=== PATIENT | female | born 1980 | race Two or more races ===

== ENCOUNTER 2020-03-01 19:45 | Emergency (ER) | payer BC ==
[~2020-03-01] VITALS: Ht 170.2 cm; Wt 95.3 kg
--- NOTE | 2020-03-01 20:05 | NUR ---
ED Nurse Note: pt presents to ED c/o ROLLINS and abd px x 4 days. pt also reports 5 episodes of vomiting today, pt states vomitus appeared to be what she ate a couple days ago, last meal was broccoli and chicken at lunch that she cooked for herself. pt states that she had one episode of loose stool today which is abnormal for her. pt denies any alcohol or drug use. her LMP was on 02/20, she reports she had a fever of 101.7 yesterday but is noted to be afebrile on triage
[2020-03-01 20:15] VITALS: BP 129/83
[2020-03-01] MEDS ORDERED: Omnipaque-300 100ml vial INJ PRN (20:15)
[2020-03-01] MEDS ORDERED: Dicyclomine 10mg Cap ORAL ONE (20:15)
[2020-03-01 20:32] LABS: BASOPHILS % (AUTO) 1.5 % (0.0-2.0); EOSINOPHILS % (AUTO) 0.6 % (0.0-3.0); HEMATOCRIT 41.2 % (37.0-47.0); HEMOGLOBIN 13.7 G/DL (12.0-16.0); LYMPHOCYTES % (AUTO) 26.2 % (20.0-45.0); MEAN CORPUSCULAR VOLUME 91 FL (80-99); MONOCYTES % (AUTO) 9.2 % (1.0-10.0); NEUTROPHILS % (AUTO) 62.6 % (45.0-75.0); PLATELET COUNT 259 K/UL (150-450); RED BLOOD COUNT 4.53 M/UL (4.20-5.40); RED CELL DISTRIBUTION WIDTH 11.6 % (11.6-14.8); WHITE BLOOD COUNT 7.4 K/UL (4.8-10.8)
[2020-03-01 20:37] LABS: BILIRUBIN, URINE NEGATIVE (NEGATIVE); COLOR,URINE PALE YELLOW; GLUCOSE, URINE (UA) NEGATIVE (NEGATIVE); KETONES,URINE 3+ (NEGATIVE); LEUKOCYTE ESTERASE ,URINE NEGATIVE (NEGATIVE); NITRITE,URINE NEGATIVE (NEGATIVE); PH,URINE 6 (4.5-8.0); PROTEIN,URINE NEGATIVE (NEGATIVE); UROBILINOGEN,URINE NORMAL MG/DL (0.0-1.0)
[2020-03-01 20:38] LABS: ANION GAP 8 mmol/L (5-15); BLOOD UREA NITROGEN 16 mg/dL (7-18); CALCIUM 9.2 MG/DL (8.5-10.1); CARBON DIOXIDE 27 MMOL/L (21-32); CHLORIDE 99 MMOL/L (98-107); CREATININE 0.9 MG/DL (0.55-1.30); POTASSIUM 3.8 MMOL/L (3.5-5.1); SODIUM 134 MMOL/L (136-145)
[2020-03-01 20:39] LABS: APPEARANCE,URINE CLEAR
[2020-03-01 20:42] LABS: ALANINE AMINOTRANSFERASE 17 U/L (12-78); ALBUMIN 4.2 G/DL (3.4-5.0); ALBUMIN/GLOBULIN RATIO 1.2 (1.0-2.7); ALKALINE PHOSPHATASE 65 U/L (46-116); ASPARTATE AMINO TRANSFERASE 18 U/L (15-37); BILIRUBIN,TOTAL 0.3 MG/DL (0.2-1.0)
--- NOTE | 2020-03-01 20:55 | NUR ---
ED Nurse Note: pt transported to CT via wheelchair, consent for IV contrast signed by pt
--- NOTE | 2020-03-01 20:59 | Emergency Room Report ---
History of Present Illness General Chief Complaint: Vomiting Source: Patient (Kaela Valenzuela) Present Illness HPI 39-year-old female with no significant past medical history here complaining of 2 days of nausea and epigastric pain with few hours of 5 bouts of nonbloody emesis. Also complains of days of going between constipation and loose stools. Has not taken any laxatives or stool softeners. Denies any blood in stool. Denies any chest pain, shortness of breath, headache and dizziness. Reports that yesterday she had a fever of 100 F. Has not taken medication for symptom relief. Appears to be afebrile upon arrival. Denies any urinary frequency and urgency, denies . Denies tobacco smoke, alcohol intake, drug use. Reports that she contacted her primary doctor in [place] and was told to be checked out for possible hiatal hernia. Denies ever being notified by primary doctor that she has history of hiatal hernia and has never had any CT scan of the abdomen done. Denies coming in contact with anything is positive for Covid. Patient also reports that pain started after eating lunch earlier today patient consumes a lot of greasy and spicy food. (Kaela Valenzuela) Allergies: Coded Allergies: No Known Allergies (Unverified , 03/01/20) COVID-19 Screening Contact w/high risk pt: No Experienced COVID-19 symptoms?: Yes COVID-19 Testing performed JOURNEYMAN PRESS OPERATOR: No (Kaela Valenzuela) Patient History Past Medical History: see triage record Past Surgical History: none Pertinent Family History: none Now: No : 3 Para: 0 Immunizations: UTD Reviewed Nursing Documentation: PMH: Agreed; PSxH: Agreed (Kaela Valenzuela) Nursing Documentation-PMH Past Medical History: No Stated History (Kaela Valenzuela) Review of Systems All Other Systems: negative except mentioned in HPI (Kaela Valenzuela) Physical Exam Vital Signs Date Time Temp Pulse Resp B/P (MAP) Pulse Ox O2 Delivery O2 Flow Rate FiO2 03/01/20 19:45 98.1 87 18 129/83 (98) 99 Room Air Sp02 EP Interpretation: reviewed, normal General Appearance: no apparent distress, alert, GCS 15, non-toxic Head: normocephalic, atraumatic Eyes: bilateral eye normal inspection, bilateral eye PERRL ENT: hearing grossly normal, normal pharynx, no angioedema, normal voice Neck: full range of motion, supple/symm/no masses Respiratory: chest non-tender, lungs clear, normal breath sounds, no rhonchi, speaking full sentences Cardiovascular #1: regular rate, rhythm, no edema Cardiovascular #2: 2+ carotid (R), 2+ carotid (L), 2+ radial (R), 2+ radial (L), 2+ dorsalis pedis (R), 2+ dorsalis pedis (L) Gastrointestinal: normal bowel sounds, non tender, soft, no mass, no organomegaly, no peritonitis, no bruit, non-distended, no guarding, no hernia, no pulsatile mass, no rebound Rectal: deferred Genitourinary: no CVA tenderness Musculoskeletal: back normal, normal range of motion, gait/station normal, non- tender Neurologic: alert, motor strength/tone normal, oriented x3, sensory intact, responsive, speech normal Psychiatric: judgement/insight normal, memory normal, mood/affect normal, no suicidal/homicidal ideation Skin: no rash Lymphatic: no adenopathy (Kaela Valenzuela) Medical Decision Making PA Attestation All my diagnosis and treatment plans were reviewed ad discussed with my supervising physician Dr. Story (Kaela Valenzuela) Diagnostic Impression: Primary Impression: Gastritis Additional Impression: Marijuana use ER Course 39-year-old female with no significant past medical history here complaining of 2 days of nausea and epigastric pain with few hours of 5 bouts of nonbloody emesis. Also complains of days of going between constipation and loose stools. Has not taken any laxatives or stool softeners. Denies any blood in stool. Denies any chest pain, shortness of breath, headache and dizziness. Reports that yesterday she had a fever of 100 F. Has not taken medication for symptom relief. Appears to be afebrile upon arrival. Denies any urinary frequency and urgency, denies . Denies tobacco smoke, alcohol intake, drug use. Reports that she contacted her primary doctor in [place] and was told to be checked out for possible hiatal hernia. Denies ever being notified by primary d jennifer that she has history of hiatal hernia and has never had any CT scan of the abdomen done. Denies coming in contact with anything is positive for Covid. Patient also reports that pain started after eating lunch earlier today patient consumes a lot of greasy and spicy food. Ddx considered but are not limited to: appendicitis, cholecystis, gastritis, gastroenteritis, UTI, pyelonephritis, SBO, diverticulitis, influenza with GI manifestation, UT, complication with , pancreatitis Vital signs: are WNL, pt. is afebrile H&PE are most consistent with: Gastritis, marijuana use ORDERS: abdominal CT, abdominal pain set, ED INTERVENTIONS: NS bolus, Zofran, Pepcid, dicyclomine I signed out the patient to Dr. Story at 9:15PM DISCHARGE: At this time pt. is stable for d/c to home. Will provide printed patient care instructions, and any necessary prescriptions. Care plan and follow up instructions have been discussed with the patient prior to discharge. Patient likely patient has tachycardia, follow-up primary care provider for referral to process camera operator, if worsening symptoms return to the emergency room. Also avoid eating spicy and acidic food. (Kaela Valenzuela) ER Course Patient CT demonstrates no acute intra-abdominal pathology. After discussing risks and benefits of further diagnostics, treatment plans, as well as indications for and risks of admission, the patient is agreeable to being discharged home. I have explained that their evaluation and treatment in the emergency department today is an important step towards them achieving better health but that their evaluation today is not intended to replace further evaluation and treatment by a physician in their local clinic. I have explained that while the current findings suggest no immediate life threatening emergency they will require further evaluation and treatment by a physician of their choice in their area. They understand that it will be necessary for them to review the final reports of their ED visit with their clinic physician. We have reviewed indications for return to the Emergency Department. I have explained that additional time may need to pass and/or additional testing as an outpatient may be necessary before a definitive diagnosis can be made. They tell me they are willing to follow up as instructed within the timeframe I recommend. They appear to understand what we discussed. Additionally they understand that if they are unable to be seen by an outpatient physician they are welcome, and in fact should, return to the Emergency Department for a repeat evaluation. The patient is stable at time of discharge. Laboratory Tests Test 03/01/20 20:09 03/01/20 20:16 Urine Color Pale yellow Urine Appearance Clear Urine pH 6 (4.5-8.0) Urine Specific [place] 1.015 (1.005-1.035) Urine Protein Negative (NEGATIVE) Urine Glucose (UA) Negative (NEGATIVE) Urine Ketones 3+ (NEGATIVE) H Urine Blood Negative (NEGATIVE) Urine Nitrite Negative (NEGATIVE) Urine Bilirubin Negative (NEGATIVE) Urine Urobilinogen Normal MG/DL (0.0-1.0) Urine Leukocyte Esterase Negative (NEGATIVE) Urine HCG, Qualitative Negative (NEGATIVE) Urine Opiates Screen Negative (NEGATIVE) Urine Barbiturates Screen Negative (NEGATIVE) Phencyclidine (PCP) Screen Negative (NEGATIVE) Urine Amphetamines Screen Negative (NEGATIVE) Urine Benzodiazepines Screen Negative (NEGATIVE) Urine Cocaine Screen Negative (NEGATIVE) Urine Marijuana (THC) Screen Positive (NEGATIVE) H White Blood Count 7.4 K/UL (4.8-10.8) Red Blood Count 4.53 M/UL (4.20-5.40) Hemoglobin 13.7 G/DL (12.0-16.0) Hematocrit 41.2 % (37.0-47.0) Mean Corpuscular Volume 91 FL (80-99) Mean Corpuscular Hemoglobin 30.3 PG (27.0-31.0) Mean Corpuscular Hemoglobin Concent 33.3 G/DL (32.0-36.0) Red Cell Distribution Width 11.6 % (11.6-14.8) Platelet Count 259 K/UL (150-450) Mean Platelet Volume 10.3 FL (6.5-10.1) H Neutrophils (%) (Auto) 62.6 % (45.0-75.0) Lymphocytes (%) (Auto) 26.2 % (20.0-45.0) Monocytes (%) (Auto) 9.2 % (1.0-10.0) Eosinophils (%) (Auto) 0.6 % (0.0-3.0) Basophils (%) (Auto) 1.5 % (0.0-2.0) Sodium Level 134 MMOL/L (136-145) L Potassium Level 3.8 MMOL/L (3.5-5.1) Chloride Level 99 MMOL/L (98-107) Carbon Dioxide Level 27 MMOL/L (21-32) Anion Gap 8 mmol/L (5-15) Blood Urea Nitrogen 16 mg/dL (7-18) Creatinine 0.9 MG/DL (0.55-1.30) Estimated Glomerular Filtration Rate > 60 mL/min (>60) Glucose Level 97 MG/DL (74-106) Calcium Level 9.2 MG/DL (8.5-10.1) Total Bilirubin 0.3 MG/DL (0.2-1.0) Aspartate Amino Transferase (AST) 18 U/L (15-37) Alanine Aminotransferase (ALT) 17 U/L (12-78) Alkaline Phosphatase 65 U/L (46-116) Total Protein 7.7 G/DL (6.4-8.2) Albumin 4.2 G/DL (3.4-5.0) Globulin 3.5 g/dL Albumin/Globulin Ratio 1.2 (1.0-2.7) Lipase 88 U/L (73-393) Serum Alcohol < 3 mg/dL (Anita Story M.D.) CT/MRI/US Diagnostic Results CT/MRI/US Diagnostic Results : Imaging Test Ordered: CT abdomen pelvis with contrast (Kaela Valenzuela) Last Vital Signs Date Time Temp Pulse Resp B/P (MAP) Pulse Ox O2 Delivery O2 Flow Rate FiO2 03/01/20 20:15 98.1 87 18 129/83 99 Room Air (Kaela Valenzuela) Disposition: HOME, SELF-CARE Condition: Stable Scripts Famotidine* (Pepcid 20mg tablet*) 20 Mg Tablet 20 MG ORAL TWICE A DAY for Gerd, #60 TAB 0 Refills Prov: Anita Story M.D. 03/01/20 Ondansetron* (ZOFRAN*) 4 Mg Tablet 4 MG ORAL Q6H PRN for Nausea & Vomiting, #10 TAB Prov: Anita Story M.D. 03/01/20 Referrals: NOT CHOSEN IPA/,REFERRING (PCP) Patient Instructions: Cannabis Use Disorder, Gastritis, Adult, [id number] Additional Instructions: Take medication as directed, avoid spicy acidic food, avoid marijuana use, if worsening symptoms return to the emergency room Kaela Valenzuela Mar 01, 2020 20:59 Anita Story M.D. Mar 01, 2020 21:29
--- NOTE | 2020-03-01 21:07 | NUR ---
ED Nurse Note: pt returned from CT, continues to have IV fluids infusing into LAC IV site
--- NOTE | 2020-03-01 21:18 | Diagnostic Imaging Report ---
EXAM: CT Abdomen and Pelvis With Intravenous Contrast CLINICAL HISTORY: PAIN TECHNIQUE: Axial computed tomography images of the abdomen and pelvis with intravenous contrast. CTDI is 12.9 mGy and DLP is 734.2 mGy-cm. One or more of the following dose reduction techniques were used: automated exposure control, adjustment of the mA and/or kV according to patient size, use of iterative reconstruction technique. COMPARISON: None FINDINGS: Lung bases: Unremarkable. No mass. No consolidation. ABDOMEN: Liver: Unremarkable. No mass. Gallbladder and bile ducts: Unremarkable. No calcified stones. No ductal dilation. Pancreas: Unremarkable. No mass. No ductal dilation. Spleen: Unremarkable. No splenomegaly. Adrenals: Unremarkable. No mass. Kidneys and ureters: Unremarkable. No solid mass. No hydronephrosis. Stomach and bowel: There is mild diverticulosis without evidence of diverticulitis. There is a normal caliber appendix. No obstruction. PELVIS: Appendix: See above. Bladder: Unremarkable. No mass. Reproductive: Unremarkable as visualized. ABDOMEN and PELVIS: Intraperitoneal space: Unremarkable. No free air. No significant fluid collection. Bones/joints: No acute fracture. No dislocation. Vasculature: Unremarkable. No abdominal aortic aneurysm. Lymph nodes: Unremarkable. No enlarged lymph nodes. IMPRESSION: No acute abdominal process. No etiology for the patient's pain is seen.
[2020-03-01] MEDS ORDERED: FAMOTIDINE20 MG ORAL (21:25)
[2020-03-01] MEDS ORDERED: ZOFRAN4 M3 ORAL (21:25)
[2020-03-01 21:30] VITALS: BP 129/83
--- NOTE | 2020-03-01 21:35 | NUR ---
ER DISCHARGE NOTE: Patient is cleared to be discharged per ERMD, pt is aox4, on room air, with stable vital signs. pt was given dc and prescription instructions, pt was able to verbalize understanding, pt id band and iv site removed without complications. pt is able to ambulate with steady gait. pt took all belongings.
== END 2020-03-01 21:30 | disposition home or self-care (01) ==
LOC: EMR 20:05
DX: K29.70 Gastritis, unspecified, without bleeding (principal); F12.90 Cannabis use, unspecified, uncomplicated; K59.00 Constipation, unspecified; K57.90 Diverticulosis of intestine, part unspecified, without perforation or abscess without bleeding
CPT/HCPCS: 36415; 74177; 80053; 80307; 81003; 81025; 83690; 85025; 96361; 96374; 96375; 99284; G0480; J2405; J7030; Q9965; S0028